=== PATIENT | male | born 1980 | race Caucasian/White ===

== ENCOUNTER → 2024-02-27 15:41 | Outpatient (BNVA) | payer OTHER, SELFPAY | PROVIDERS: Visit Provider Nurse Practitioner Family | DX: I10 Essential (primary) hypertension (principal); G51.0 Bell's palsy; R53.83 Other fatigue; E78.5 Hyperlipidemia, unspecified; Z87.442 Personal history of urinary calculi; Z78.9 Other specified health status; R10.12 Left upper quadrant pain | CPT/HCPCS: 80053; 80061; 81000; 84443; 85025; 86140 ==

== ENCOUNTER → 2024-05-29 07:40 | Outpatient (BNVA) | payer OTHER, SELFPAY | PROVIDERS: PCP Nurse Practitioner Family; Visit Provider Nurse Practitioner Family | DX: E78.2 Mixed hyperlipidemia (principal) | CPT/HCPCS: 80061; 83721 ==

== ENCOUNTER → 2024-07-06 11:29 | Outpatient (BNVA) | payer OTHER, SELFPAY | PROVIDERS: PCP Nurse Practitioner Family; Visit Provider Nurse Practitioner Family | DX: E78.2 Mixed hyperlipidemia (principal) | CPT/HCPCS: 80061 ==

== ENCOUNTER → 2024-10-05 08:35 | Outpatient (BNVA) | payer OTHER, SELFPAY | PROVIDERS: PCP Nurse Practitioner Family; Visit Provider Nurse Practitioner Family | DX: E78.2 Mixed hyperlipidemia (principal); I10 Essential (primary) hypertension | CPT/HCPCS: 80053; 80061 ==

== ENCOUNTER → 2025-02-06 10:05 | Outpatient (BNVA) | payer OTHER, SELFPAY | PROVIDERS: PCP Nurse Practitioner Family; Visit Provider Nurse Practitioner Family | DX: M25.50 Pain in unspecified joint (principal) | CPT/HCPCS: 84550; 86038; 86431 ==

== ENCOUNTER 2025-02-15 15:30 | Outpatient (CLI) | payer OTHER, SELFPAY ==
--- NOTE | 2025-02-15 15:42 | XRR_ITS ---
PROCEDURE INFORMATION: Exam: XR Right Knee Exam date and time: 02/15/2025 3:47 PM Age: 44 years old Clinical indication: Pain; Knee; Bilateral; Additional info: M25.569 - pain in unspecified knee TECHNIQUE: Imaging protocol: Radiologic exam of the right knee. Views: 3 views. COMPARISON: No relevant prior studies available. FINDINGS: Bones/joints: No acute fracture or dislocation. Mild narrowing of the medial compartment. Small tricompartmental osteophytes. Small linear lucency along the lateral aspect of the lateral tibial plateau appears to have somewhat well corticated margins, likely chronic. No joint effusion. Soft tissues: Normal. XR/XR knee RT 3V* [id number] IMPRESSION: 1. No acute osseous findings. 2. Mild tricompartmental degenerative changes.
--- NOTE | 2025-02-15 15:42 | XRR_ITS ---
PROCEDURE INFORMATION: Exam: XR Left Knee Exam date and time: 02/15/2025 3:47 PM Age: 44 years old Clinical indication: Pain; Knee; Bilateral; Additional info: M25.569 - pain in unspecified knee TECHNIQUE: Imaging protocol: Radiologic exam of the left knee. Views: 3 views. COMPARISON: No relevant prior studies available. FINDINGS: Bones/joints: No acute fracture or dislocation. Mild narrowing of the medial compartment with small marginal osteophytes. Trace joint effusion. Soft tissues: Normal. XR/XR knee LT 3V* [id number] IMPRESSION: 1. No acute osseous findings. 2. Mild degenerative changes most pronounced in the medial compartment. 3. Trace joint effusion.
--- NOTE | 2025-02-15 16:00 | MR_ITS ---
WS: [id number] MRI RIGHT SHOULDER NONCONTRAST TECHNIQUE: Sagittal T2, coronal T1, T2 and proton density imaging. Axial gradient PDE imaging. CLINICAL INFORMATION: S46.219A - Strain of muscle, fascia and tendon of other p... COMPARISON: None. FINDINGS: Moderate degenerative arthritis AC joint with subacromial spurring. Impingement on the distal supraspinatus. Tendinopathy in the supraspinatus and infraspinatus. Small undersurface and insertional tears distal supraspinatus. No tendon retraction. Normal teres minor. Subscapularis tendon is normal. Only a tiny biceps tendon remnant within the bicipital groove. Normal biceps tendon is not visualized. Intra-articular biceps tendon is only partially visualized. Biceps tendon at the biceps labral anchor is not visualized. Degenerative narrowing of the glenohumeral articulation with suspected small SL AP tear. MR/MR shoulder RT wo con* [id number] IMPRESSION: 1. Biceps tendon in the bicipital groove is not visualized. Only a tiny remnan t. High-grade tear suspected of the intra-articular biceps tendon. Distal bicep s tendon at the elbow insertion is not included on the study. 2. Moderate degenerative arthritis AC joint with subacromial spurring and impi ngement on the supraspinatus. Tendinopathy supraspinatus and infraspinatus. 3. Small undersurface and insertional tears distal supraspinatus. 4. Suspected small SLAP tear
== END 2025-02-15 15:31 | disposition home or self-care (01) ==
PROVIDERS: PCP Nurse Practitioner Family; Visit Provider Nurse Practitioner Family
DX: S46.211A Strain of muscle, fascia and tendon of other parts of biceps, right arm, initial encounter (principal); M19.011 Primary osteoarthritis, right shoulder; M75.101 Unspecified rotator cuff tear or rupture of right shoulder, not specified as traumatic; M25.561 Pain in right knee; M25.562 Pain in left knee; X58.XXXA Exposure to other specified factors, initial encounter
CPT/HCPCS: 73221; 73562

== ENCOUNTER → 2025-03-11 15:14 | Outpatient (BNVA) | payer OTHER, SELFPAY | PROVIDERS: PCP Nurse Practitioner Family; Visit Provider Orthopaedic Surgery | DX: S46.211A Strain of muscle, fascia and tendon of other parts of biceps, right arm, initial encounter (principal); X58.XXXA Exposure to other specified factors, initial encounter | CPT/HCPCS: 73030 ==